=== PATIENT | female | born 1985 | race Caucasian/White ===

== ENCOUNTER 2021-10-23 09:03 | Inpatient (IN) | payer MEDICAID, OTHER ==
[~2021-10-23] VITALS: Ht 165.1 cm; Wt 73.7 kg
[2021-10-23] MEDS ORDERED: SERT50TA29 PO (09:16)
[2021-10-23] MEDS ORDERED: HYDR1CAP25 PO (09:16)
[2021-10-23 11:00] LABS: HEMATOCRIT 40.8 % (36.0-47.0); HEMOGLOBIN 13.4 g/dl (12.0-15.5); MEAN CORPUSCULAR HEMOGLOBIN 28.7 pg (27.0-33.0); MEAN CORPUSCULAR HGB CONC 32.8 g/dl (32.0-36.5); MEAN CORPUSCULAR VOLUME 87.4 fl (80.0-96.0); PLATELET COUNT, AUTOMATED 335 10^3/uL (150-450); RED BLOOD COUNT 4.67 10^6/uL (4.00-5.40); WHITE BLOOD COUNT 6.4 10^3/uL (4.0-10.0)
[2021-10-23 11:37] LABS: ACETAMINOPHEN LEVEL < 2.0 UG/ML (10.0-30.0); ALT/SGPT 27 U/L (12-78); BILIRUBIN,DIRECT 0.1 MG/DL (0.0-0.2); BILIRUBIN,TOTAL 0.3 MG/DL (0.2-1.0); BLOOD UREA NITROGEN 16 MG/DL (7-18); CALCIUM LEVEL 9.2 MG/DL (8.5-10.1); CARBON DIOXIDE LEVEL 29 MEQ/L (21-32); CHLORIDE LEVEL 104 MEQ/L (98-107); CREATININE FOR GFR 0.63 MG/DL (0.55-1.30); ETHYL ALCOHOL (ETHANOL) < 0.003 % (0.000-0.010); GLOMERULAR FILTRATION RATE > 60.0 (>60); GLUCOSE, FASTING 85 MG/DL (70-100); HCG, SERUM QUALITATIVE NEGATIVE (NEGATIVE); POTASSIUM SERUM 4.2 MEQ/L (3.5-5.1); SALICYLATE LEVEL < 1.7 MG/DL (5.0-30.0); SODIUM LEVEL 137 MEQ/L (136-145); TOTAL PROTEIN 7.3 GM/DL (6.4-8.2)
[2021-10-23 11:42] LABS: AMPHETAMINES LEVEL URINE NEGATIVE (NEGATIVE); BARBITURATES URINE NEGATIVE (NEGATIVE); BENZODIAZEPINES URINE NEGATIVE (NEGATIVE); CANNABINOIDS URINE NEGATIVE (NEGATIVE); COCAINE METABOLITE URINE NEGATIVE (NEGATIVE); METHADONE URINE NEGATIVE (NEGATIVE); OPIATES URINE NEGATIVE (NEGATIVE); PHENCYCLIDINE URINE NEGATIVE (NEGATIVE)
[2021-10-23 11:54] LABS: RSV AMPLIFICATION NEGATIVE (NEGATIVE)
[2021-10-23] MEDS ORDERED: HYDR50CA2 PO (14:41)
[2021-10-23] MEDS ORDERED: ZOLO100T PO (14:41)
[2021-10-23] MEDS ORDERED: HOME MED LIST COMPLETE! XX SCH (14:45)
[2021-10-24] MEDS ORDERED: MAALOX 30 ML SUSP *UDC PO PRN (01:50)
[2021-10-24] MEDS ORDERED: ACETAMINOPHEN TAB 650MG DOSE (2X325MG) PO PRN (01:50)
[2021-10-24] MEDS ORDERED: MOM 30ML SUSPENSION UDC PO PRN (01:50)
[2021-10-24] MEDS ORDERED: NICOTINE 21MG/24HR 1 EA TRANSDERMAL TD PRN (01:50)
[2021-10-24] MEDS: hydrOXYzine 50 MG TAB PO PRN ×2 (02:59→09:49)
[2021-10-24] MEDS: traZODone 50 MG TAB PO PRN ×2 (02:59→20:59)
[2021-10-24 03:12] VITALS: BP 141/84
[2021-10-24] MEDS: SERTRALINE 100 MG TAB PO SCH (08:02)
[2021-10-24] MEDS ORDERED: INFLUENZA QUADRIVALENT PF VACCINE 0.5ML SYRINGE IM ONE (09:00)
[2021-10-24] MEDS: OLANZapine 2.5MG TABLET PO SCH ×3 (11:00→20:59)
[2021-10-24 18:00] VITALS: BP 121/65
[2021-10-24 19:55] VITALS: BP 145/79
[2021-10-24] MEDS ORDERED: LORazepam 2 MG TAB PO PRN (20:25)
[2021-10-24] MEDS: THIAMINE 100 MG TAB PO SCH (20:59)
[2021-10-24 21:55] VITALS: BP 145/79
[2021-10-25 05:55] VITALS: BP 115/66
[2021-10-25 08:15] VITALS: BP 115/66
[2021-10-25] MEDS: FOLIC ACID 1 MG TAB PO SCH (08:18)
[2021-10-25] MEDS: THIAMINE 100 MG TAB PO SCH ×2 (08:19→20:16)
[2021-10-25] MEDS: OLANZapine 2.5MG TABLET PO SCH (08:19)
[2021-10-25] MEDS: SERTRALINE 100 MG TAB PO SCH (08:19)
[2021-10-25] MEDS: MULTIVITAMINS/MINERALS THERAP 1 TAB PO SCH (08:19)
[2021-10-25 16:27] VITALS: BP 117/70
[2021-10-25] MEDS: traZODone 50 MG TAB PO PRN (20:16)
[2021-10-25] MEDS: OLANZapine 5 MG TAB PO SCH (20:16)
[2021-10-25] MEDS ORDERED: DIVALPROEX 125 MG TAB PO ONE (21:00)
[2021-10-25 21:55] VITALS: BP 120/61
[2021-10-26 05:55] VITALS: BP 109/68
[2021-10-26 08:00] VITALS: BP 109/68
[2021-10-26 08:04] LABS: CHOLESTEROL RISK RATIO 4.016 (<5)
[2021-10-26] MEDS: MULTIVITAMINS/MINERALS THERAP 1 TAB PO SCH (08:54)
[2021-10-26] MEDS: OLANZapine 5 MG TAB PO SCH ×2 (08:54→20:06)
[2021-10-26] MEDS: FOLIC ACID 1 MG TAB PO SCH (08:54)
[2021-10-26] MEDS: THIAMINE 100 MG TAB PO SCH ×2 (08:54→20:06)
[2021-10-26] MEDS: SERTRALINE 100 MG TAB PO SCH (08:54)
[2021-10-26] MEDS: hydrOXYzine 50 MG TAB PO PRN (12:47)
[2021-10-26 14:00] VITALS: BP 110/65
[2021-10-26 18:29] VITALS: BP 131/78
[2021-10-26] MEDS: DIVALPROEX 250 MG TAB PO SCH (20:06)
[2021-10-26] MEDS: traZODone 50 MG TAB PO PRN (20:06)
[2021-10-26] MEDS: OLANZapine ORAL DISINTEGRATING TAB 5MG PO PRN (20:36)
[2021-10-26 22:00] VITALS: BP 118/69
[2021-10-27 06:00] VITALS: BP 113/66
[2021-10-27] MEDS: THIAMINE 100 MG TAB PO SCH (08:18)
[2021-10-27] MEDS: SERTRALINE 100 MG TAB PO SCH (08:18)
[2021-10-27] MEDS: MULTIVITAMINS/MINERALS THERAP 1 TAB PO SCH (08:18)
[2021-10-27] MEDS: OLANZapine 5 MG TAB PO SCH (08:19)
[2021-10-27] MEDS: FOLIC ACID 1 MG TAB PO SCH (08:19)
[2021-10-27] MEDS: OLANZapine ORAL DISINTEGRATING TAB 5MG PO PRN ×2 (09:48→20:12)
[2021-10-27 16:16] VITALS: BP 122/67
[2021-10-27] MEDS: hydrOXYzine 50 MG TAB PO PRN (18:29)
[2021-10-27] MEDS: traZODone 50 MG TAB PO PRN (20:12)
[2021-10-27] MEDS: OLANZapine 10 MG TAB PO SCH (20:12)
[2021-10-27] MEDS: DIVALPROEX 250 MG TAB PO SCH (20:12)
[2021-10-27] MEDS ORDERED: diphenhydrAMINE 50MG CAP PO ONE (21:10)
[2021-10-27] MEDS ORDERED: LORazepam 1 MG TAB PO ONE (21:10)
[2021-10-28 06:26] VITALS: BP 129/67
[2021-10-28] MEDS: OLANZapine 5 MG TAB PO SCH (08:22)
[2021-10-28] MEDS: SERTRALINE 100 MG TAB PO SCH (08:22)
[2021-10-28] MEDS: OLANZapine ORAL DISINTEGRATING TAB 5MG PO PRN ×2 (12:08→20:13)
[2021-10-28 17:05] VITALS: BP 128/69
[2021-10-28] MEDS: OLANZapine 10 MG TAB PO SCH (20:13)
[2021-10-28] MEDS: DIVALPROEX 250 MG TAB PO SCH (20:13)
[2021-10-28] MEDS: traZODone 50 MG TAB PO PRN (20:13)
[2021-10-28] MEDS: hydrOXYzine 50 MG TAB PO PRN (22:21)
[2021-10-29 06:35] VITALS: BP 119/59
[2021-10-29] MEDS: SERTRALINE 100 MG TAB PO SCH (08:21)
[2021-10-29] MEDS: OLANZapine 5 MG TAB PO SCH (08:21)
[2021-10-29] MEDS: OLANZapine ORAL DISINTEGRATING TAB 5MG PO PRN ×2 (11:56→18:41)
[2021-10-29] MEDS ORDERED: OLANZapine 5 MG TAB PO ONE (13:00)
[2021-10-29 16:40] VITALS: BP 125/67
[2021-10-29] MEDS: traZODone 50 MG TAB PO PRN (20:28)
[2021-10-29] MEDS: OLANZapine 10 MG TAB PO SCH (20:28)
[2021-10-29] MEDS: hydrOXYzine 50 MG TAB PO PRN (20:29)
[2021-10-29] MEDS: DIVALPROEX 250 MG TAB PO SCH (20:29)
[2021-10-30 06:22] VITALS: BP 140/65
[2021-10-30] MEDS: OLANZapine 10 MG TAB PO SCH (08:15)
[2021-10-30] MEDS: SERTRALINE 100 MG TAB PO SCH (08:15)
[2021-10-30] MEDS ORDERED: DEPA250T32 PO (10:01)
[2021-10-30] MEDS ORDERED: NICO21PAT TD (10:01)
[2021-10-30] MEDS ORDERED: ZOLO100T PO (10:01)
[2021-10-30] MEDS ORDERED: OLAN1TAB20 PO (10:01)
[2021-10-30] MEDS ORDERED: TRAZ-252 PO (10:01)
[2021-10-30] MEDS: OLANZapine ORAL DISINTEGRATING TAB 5MG PO PRN (11:59)
== END 2021-10-30 13:30 | disposition home or self-care (01) | DRG 753 ==
LOC: M ED 09:03 → M ED INP 09:04 → M PSY 10-24 02:37
PROVIDERS: ADMIT Psychiatry & Neurology Psychiatry; ATTEND Psychiatry & Neurology Psychiatry
DX: F31.9 Bipolar disorder, unspecified (principal); F10.10 Alcohol abuse, uncomplicated; R44.0 Auditory hallucinations; Z81.8 Family history of other mental and behavioral disorders; Z20.822 Contact with and (suspected) exposure to COVID-19; Z79.899 Other long term (current) drug therapy; F17.290 Nicotine dependence, other tobacco product, uncomplicated; Z91.14 Patient's other noncompliance with medication regimen; Z63.5 Disruption of family by separation and divorce; F15.11 Other stimulant abuse, in remission

== ENCOUNTER → 2023-06-04 | Outpatient (CLI) | payer OTHER ==
[~2023-06-04] MED LIST: DEPA250T32 PO; HYDR1CAP25 PO; HYDR50CA2 PO; NICO21PAT TD; OLAN1TAB20 PO; SERT50TA29 PO; TRAZ-252 PO; ZOLO100T PO
== END ==
LOC: M SLEEP HO 12:22
PROVIDERS: ATTEND Family Medicine
DX: R53.83 Other fatigue (principal); R06.81 Apnea, not elsewhere classified

== ENCOUNTER → 2024-08-18 | Outpatient (CLI) | payer OTHER ==
[2024-08-18 16:30] LABS: BASO # 0.1 10^3/uL (0.0-0.2); BASO % 0.7 % (0.0-1.0); EOS # 0.3 10^3/uL (0.0-0.5); EOS % 3.1 % (0.0-3.0); HEMATOCRIT 36.4 % (36.0-47.0); HEMOGLOBIN 11.6 g/dl (12.0-15.5); LYMPH % 20.6 % (24.0-44.0); MEAN CORPUSCULAR HEMOGLOBIN 28.4 pg (27.0-33.0); MEAN CORPUSCULAR HGB CONC 31.9 g/dl (32.0-36.5); MEAN CORPUSCULAR VOLUME 89.2 fl (80.0-96.0); MONO # 0.9 10^3/uL (0.0-0.8); MONO % 9.3 % (2.0-8.0); NEUTROPHILS # 6.5 10^3/uL (1.5-8.5); NEUTROPHILS % 65.7 % (36.0-66.0); PLATELET COUNT, AUTOMATED 484 10^3/uL (150-450); RED BLOOD COUNT 4.08 10^6/uL (4.00-5.40); WHITE BLOOD COUNT 9.8 10^3/uL (4.0-10.0)
== END ==
LOC: M LAB 15:33
PROVIDERS: ATTEND Nurse Practitioner Adult Health
DX: J45.909 Unspecified asthma, uncomplicated (principal)

== ENCOUNTER 2024-12-30 11:14 | Inpatient (IN) | payer MEDICAID, OTHER ==
[~2024-12-30] VITALS: Ht 162.6 cm; Wt 94.8 kg
[~2024-12-30 11:14] MED LIST changes: -DEPA250T32 PO; +DIVA-65 PO
[2024-12-30] MEDS ORDERED: ALBU8.5H INH (11:23)
[2024-12-30] MEDS ORDERED: LATU20TA PO (11:23)
[2024-12-30] MEDS ORDERED: LAMI25TA PO (11:23)
[2024-12-30] MEDS ORDERED: MODA100T13 PO (11:23)
[2024-12-30] MEDS ORDERED: SEMA0.257 SQ (11:23)
[2024-12-30 12:00] LABS: PLATELET COUNT, AUTOMATED 447 10^3/uL (150-450)
[2024-12-30 12:25] LABS: ETHYL ALCOHOL (ETHANOL) < 0.003 % (0.000-0.010)
[2024-12-30 12:27] LABS: ALT/SGPT 59 U/L (7.0-40); AST/SGOT 42 U/L (<34); CALCIUM LEVEL 9.1 MG/DL (8.5-10.1); CARBON DIOXIDE LEVEL 24 MMOL/L (20-31); CHLORIDE LEVEL 104 MMOL/L (98-107); CREATININE FOR GFR 0.68 MG/DL (0.55-1.30); GLOMERULAR FILTRATION RATE > 90.0 (>60); POTASSIUM SERUM 3.9 MMOL/L (3.5-5.1); SALICYLATE LEVEL < 3.0 MG/DL (<30); SODIUM LEVEL 141 MMOL/L (136-145)
[2024-12-30 12:35] LABS: AMPHETAMINES LEVEL URINE NEGATIVE (NEGATIVE); BENZODIAZEPINES URINE NEGATIVE (NEGATIVE)
[2024-12-30 12:36] LABS: BARBITURATES URINE NEGATIVE (NEGATIVE); CANNABINOIDS URINE NEGATIVE (NEGATIVE); COCAINE METABOLITE URINE NEGATIVE (NEGATIVE); METHADONE URINE NEGATIVE (NEGATIVE); OPIATES URINE NEGATIVE (NEGATIVE); PHENCYCLIDINE URINE NEGATIVE (NEGATIVE)
[2024-12-30 13:19] LABS: URINE PREG TEST NEGATIVE (NEGATIVE)
[2024-12-30] MEDS ORDERED: MAALOX 30 ML SUSP *UDC PO PRN (13:25)
[2024-12-30] MEDS ORDERED: IBUPROFEN 400 MG TAB PO PRN (13:25)
[2024-12-30] MEDS ORDERED: MOM 30 ML SUSPENSION UDC PO PRN (13:25)
[2024-12-30] MEDS ORDERED: HOME MED LIST COMPLETE! XX SCH (13:50)
[2024-12-30 14:25] VITALS: BP 134/78; TEMP 97.3; O2SAT 98
[2024-12-30 15:20] VITALS: BP 134/78
[2024-12-30] MEDS: MULTIVITAMINS/MINERALS THERAP 1 TAB PO SCH (18:12)
[2024-12-30] MEDS: FOLIC ACID 1 MG TAB PO SCH (18:12)
[2024-12-30] MEDS: THIAMINE 100 MG TAB PO SCH (18:12)
[2024-12-30 18:34] VITALS: BP 146/75; TEMP 97.7
[2024-12-30] MEDS: traZODone 50 MG TAB PO PRN (21:02)
[2024-12-30] MEDS: OLANZapine 5 MG TAB PO ONE (21:02)
[2024-12-30 22:00] VITALS: BP 141/82
[2024-12-30] MEDS: traZODone 100 MG TAB PO ONE (23:23)
[2024-12-30] MEDS: ACETAMINOPHEN 325 MG TAB PO PRN (23:24)
[2024-12-31 06:00] VITALS: BP 136/70
[2024-12-31 06:29] VITALS: BP 136/70; TEMP 97.5; O2SAT 100
[2024-12-31] MEDS ORDERED: ALBUTEROL 90 MCG/ACT 8 GM HFA INHALER INH PRN (07:25)
[2024-12-31] MEDS: ALBUTEROL 90 MCG/ACT 8 GM HFA INHALER INH PRN (07:42)
[2024-12-31 07:58] VITALS: BP 136/70
[2024-12-31] MEDS: LURASIDONE HCL 40 MG TAB PO SCH (08:26)
[2024-12-31] MEDS: lamoTRIgine 25 MG TAB PO SCH (08:26)
[2024-12-31] MEDS: OLANZapine ORAL DISINTEGRATING TAB 5MG PO PRN (11:43)
[2024-12-31 15:28] VITALS: BP 123/71; TEMP 98.5; O2SAT 97
[2024-12-31 15:58] VITALS: BP 123/71
[2025-01-01 06:38] VITALS: BP 134/68; TEMP 97.3; O2SAT 100
[2025-01-01 07:32] LABS: CHOLESTEROL LEVEL 166.0 MG/DL (<200); CHOLESTEROL RISK RATIO 3.14 (<5); LDL CHOLESTEROL 92.2 MG/DL (<100); NON-HDL-C 113.2 MG/DL; TRIGLYCERIDES LEVEL 105.0 MG/DL (<150)
[2025-01-01] MEDS: HALOPERIDOL 0.5 MG TAB PO PRN (10:14)
[2025-01-01 15:08] VITALS: BP 132/86; TEMP 97.4; O2SAT 99
[2025-01-01] MEDS: OLANZapine ORAL DISINTEGRATING TAB 5MG PO PRN (20:21)
[2025-01-02 06:33] VITALS: BP 133/71; TEMP 97.2; O2SAT 97
[2025-01-02] MEDS: LURASIDONE HCL 20 MG TAB PO SCH (08:09)
[2025-01-02] MEDS ORDERED: OZEMPIC 0.25 MG SC SCH (09:00)
[2025-01-02 15:42] VITALS: BP 145/89; TEMP 97; O2SAT 100
[2025-01-02] MEDS: RAMELTEON 8 MG TAB PO SCH (20:12)
[2025-01-03 06:44] VITALS: BP 123/82; TEMP 97.2; O2SAT 98
[2025-01-03 15:23] VITALS: BP 116/66; TEMP 97.5; O2SAT 97
[2025-01-03] MEDS: OLANZapine ORAL DISINTEGRATING TAB 5MG PO PRN (18:03)
[2025-01-04 06:41] VITALS: BP 118/98; TEMP 97.1; O2SAT 98
[2025-01-04 15:16] VITALS: BP 147/83; TEMP 97.6; O2SAT 99
[2025-01-04] MEDS: LURASIDONE HCL 20 MG TAB PO ONE (17:22)
[2025-01-05 06:32] VITALS: BP 160/88; TEMP 96.8; O2SAT 99
[2025-01-05 07:38] VITALS: BP 128/75; TEMP 97.3; O2SAT 100
[2025-01-05] MEDS: LURASIDONE HCL 20 MG TAB PO SCH (08:30)
[2025-01-05] MEDS ORDERED: LATU20TA PO (08:48)
[2025-01-05] MEDS ORDERED: RAME8TAB2 PO (08:48)
[2025-01-05] MEDS ORDERED: OLANZapine DISINTEGRATING PO (08:48)
[2025-01-05] MEDS ORDERED: OLAN10TA12 PO (16:24)
== END 2025-01-05 09:41 | disposition home or self-care (01) | DRG 751 ==
LOC: M ED 11:14 → M ED INP 13:24 → M PSY 14:22
PROVIDERS: ADMIT General Practice; ATTEND General Practice
DX: F29 Unspecified psychosis not due to a substance or known physiological condition (principal); I10 Essential (primary) hypertension; R45.851 Suicidal ideations; J45.20 Mild intermittent asthma, uncomplicated; Z79.899 Other long term (current) drug therapy; F43.10 Post-traumatic stress disorder, unspecified; F17.290 Nicotine dependence, other tobacco product, uncomplicated; E66.812 Obesity, class 2; F10.20 Alcohol dependence, uncomplicated